=== PATIENT | female | born 1950 | race Caucasian/White ===

== ENCOUNTER 2017-12-30 12:43 | Inpatient (IN) ==
[2017-12-30 13:19] LABS: Basophils % 0.1 %
[2017-12-30 13:21] LABS: Eosinophils % 0.1 %; Hematocrit 36.5 % (35.3-44.9); Hemoglobin 12.4 g/dL (11.5-15.4); Immature Granulocytes % 0.5 % (0-4); Immature Platelets 4.6 % (1.1-6.1); Lymphocytes # 0.2 K/mcL (0.6-4.6); Lymphocytes % 2.6 %; Mean Corpuscular Hemoglobin 28.9 pg (28.0-33.3); Mean Corpuscular Volume 85.1 fL (83.0-100.0); Mean Platelet Volume 10.7 fL (9.4-12.4); Monocytes # 0.8 K/mcL (0.0-1.3); Monocytes % 10.9 %; Red Blood Count 4.29 M/mcL (3.82-4.97); Red Cell Distribution Width 14.1 % (11.5-14.5); Segmented Neutrophils % 85.8 %
[2017-12-30 13:22] LABS: Neutrophils # 6.4 K/mcL (1.6-8.9); Platelet Count 82 K/mcL (140-400)
[2017-12-30 13:38] LABS: BUN/Creatinine Ratio 15 (6-26); Blood Urea Nitrogen 15 mg/dL (8-23); Calcium 9.5 mg/dL (8.6-10.3); Carbon Dioxide 24 mEq/L (23-29); Chloride 101 mEq/L (98-107); Glucose 136 mg/dL (70-105); Osmolality,Calculated 283 (280-300); Potassium 3.7 mEq/L (3.5-5.1); Sodium 135 mEq/L (136-145); eGFR For Non-African Americans 56 (> 60)
[2017-12-30] MEDS ORDERED: Piperacillin/Tazobactam 3.375 GM in 0.9 % Sodium Chloride Mini Bag 100 ML IVPB ONE (14:58)
--- NOTE | 2017-12-30 14:58 | Emergency Department Note ---
Disposition Clinical Impression: Abscess of groin, right Cellulitis Qualifiers: Site of cellulitis: extremity Site of cellulitis of extremity: lower extremity Laterality: right Qualified Code(s): L03.115 - Cellulitis of right lower limb Disposition: Admitted As Inpatient Condition: Fair Time of Disposition: 17:30 General Adult HPI - General Chief complaint: ED Abdominal Pain Stated complaint: infection near groin Time Seen by Provider: 12/30/17 14:42 Source: patient, family Mode of arrival: private vehicle Limitations: no limitations Nursing Notes Reviewed: Yes Vital Signs Reviewed: Yes - History of Present Illness HPI Narrative: 67 y/o female presents to the ED with right groin and thigh pain. She is concerned that she has an infection. She has a hx of right groin lymph node removal, right groin infection/abscess being drained dx follicular lymphoma. She has always had a pocket of fluid since she had LN surgery. She completed chemo this spring and it did not go down. She had [place] surgeon [place] drain the area in October and it went down a little. For the last 3 days the area has become larger and more painful and redness going down right leg/thigh. She went to her PCP yesterday who marked the area and gave her rocephin IM and prescription for Bactrim. The redness was spreading so she came in for evaluation. She has had intermittent fevers and chills, has felt run down. Denies cp, sob, abd pain, ANGELES, dizziness, rashes, n/v/d. She went to the [facility] for her cancer treatment and had her surgery at [facility]. Pain Scale: 5 - Related Data Home Medications Medication Instructions Recorded Confirmed L. Acidophilus/Pectin, [place] 1 cap PO DAILY 11/04/16 12/30/17 [Acidophilus Probiotic Capsule] Multivitamin [One Daily 1 tab PO DAILY 12/30/17 12/30/17 Multivitamin] Sulfamethoxazole/Trimeth DS 1 tab PO BID 12/30/17 12/30/17 [Bactrim Ds] Allergies Allergy/AdvReac Type Severity Reaction Status Date / Time hydrocodone [From Vicodin] AdvReac See Verified 12/30/17 15:27 Comments All systems ED: reviewed and negative except as stated. Past Medical History - Past Medical History Medical history: Reports: arthritis, other (follicular lymphoma) Surgical history: Reports: cancer surgery (right groin LN removal) Psychiatric history: Reports: no psych history - Social History Smoking Status: Never smoker Smokeless Tobacco Status: No Alcohol use: Reports: none Drug use: Reports: none Physical Exam - General Limitations: no limitations General appearance: alert, in no apparent distress - Head Head exam: atraumatic, normocephalic, normal inspection - Eye Eye exam: Present: normal appearance, PERRL, EOMI - ENT ENT exam: normal exam, normal oropharynx, mucous membranes moist - Neck Neck exam: Present: normal inspection, full ROM, trachea midline - Chest Chest inspection: Present: normal inspection, symmetric chest wall rise - Respiratory Respiratory exam: Present: normal lung sounds bilaterally - Cardiovascular Cardiovascular exam: Present: regular rate, normal rhythm, normal heart sounds - Abdominal Exam Abdominal exam: Present: soft, Non-Tender. Absent: tenderness, distention, guarding, rebound, rigidity - Expanded Lower Extremity Exam Hip/Pelvis exam: Present: tenderness - Neurological Exam Neurological exam: Present: alert, oriented X3 - Psychiatric Psychiatric exam: Present: normal affect, normal mood - Skin Skin exam: Present: warm, dry - Expanded Skin Exam Type of lesion: Present: abscess Distribution: RLE (near right groin) Description: Present: tenderness, erythematous, swelling. Absent: discharge Course Course Narrative: 67 y/o female presents to the ED with right groin and thigh pain. She is concerned that she has an infection. She has a hx of right groin lymph node removal, right groin infection/abscess being drained dx follicular lymphoma. She has always had a pocket of fluid since she had LN surgery. She completed chemo this spring and it did not go down. She [place] surgeon [place] the area in October and it went down a little. For the last 3 days the area has become larger and more painful and redness going down right leg/thigh. She went to her PCP yesterday who marked the area and gave her rocephin IM and prescription for Bactrim. The redness was spreading so she came in for evaluation. On exam area appears erythemetous and swollen. Erythema has spread past watts from PCP. It is also warm. US at bedside reveals large pocket of non- loculated fluid. Likely is abscess with overlying cellulitis. Will start IV zosyn and vanc, consult surgery to assess for possible I/D. - Reevaluation(s) Reevaluation #1: Pt resting comfortably. Advised of plan and is agreeable. Provided warm blanket and swabs to we her mouth. Time: 16:30 - Consultations Consultation #1: Discussed the case with Dr. Pena with General Surgery regarding the patient needing evaluation for I/D of abscess. Advised pt will be admitted for IV abx. Consult placed. Time: 15:04 Consultation #2: Discussed the patient with Dr. Lane with the Hospitalist Service who has accepted the pt for admission. Time: 16:30 Vital Signs Temperature 99 F 12/30/17 12:48 Pulse Rate 82 12/30/17 12:48 Respiratory Rate 20 12/30/17 12:48 Blood Pressure 125/75 12/30/17 12:48 O2 Sat by Pulse Oximetry 98 12/30/17 12:48 Temperature 99 F 12/30/17 15:35 Pulse Rate 82 12/30/17 15:35 Respiratory Rate 16 12/30/17 17:33 Blood Pressure 103/64 12/30/17 17:33 O2 Sat by Pulse Oximetry 98 12/30/17 15:35 Oxygen Delivery Oxygen Delivery Room Air Medical Decision Making - MDM Narrative Medical decision making narrative: Pt presents with hx of follicular lymphoma, s/p chemo and right groin LN removal. She had a persistent pocket of fluid that was drained by her surgeon in [place] in October. Over the last 3 days she has had worsened erythema, swelling and warmth. She saw her PCP yesterday who outlined the area, gave her IM Rocephin and started her on bactrim. She states that today the erythema spread outside of the outline and she is having fevers and chills off and on. She was concerned and came in for evaluation. Area of erythema and warmth is extremely tender. Limited transcutaneous US performed at bedside with supervision of Dr. Agudelo revealed an area of non-loculated fluid collection. Overlying skin appears cellulitic. Due to location in right groin and diffuse nature of abscess, this is a procedure that we would not feel comfortable completing in the ED. Discussed case with pt and she wishes to stay at [place] vs going up to [facility] where her surgery was performed. Discussed case with oncall surgeon Dr. Pena, consult placed. Pt started on IV vancomycin for MRSA coverage and zosyn. Pt will be admitted for IV abx administration and possible I&D. - Lab Data Lab results reviewed: Yes I reviewed the patient's lab results. Result diagrams: 12/30/17 13:04 12/30/17 13:04 Lab Results 12/30/17 12/30/17 Range/Units 13:04 13:04 WBC 7.4 (4.3-11.1) K/mcL RBC 4.29 (3.82-4.97) M/mcL Hgb 12.4 (11.5-15.4) g/dL Hct 36.5 (35.3-44.9) % MCV 85.1 (83.0-100.0) fL MCH 28.9 (28.0-33.3) pg MCHC 34.0 (31.6-35.5) g/dL RDW 14.1 (11.5-14.5) % Plt Count 82 L (140-400) K/mcL MPV 10.7 (9.4-12.4) fL Immature Gran % 0.5 (0-4) % Seg Neutrophils % 85.8 % Lymphocytes % 2.6 % Monocytes % 10.9 % Eosinophils % 0.1 % Basophils % 0.1 % Neutrophils # 6.4 (1.6-8.9) K/mcL Lymphocytes # 0.2 L (0.6-4.6) K/mcL Monocytes # 0.8 (0.0-1.3) K/mcL Eosinophils # 0.0 (0.0-0.6) K/mcL Basophils # 0.0 (0.0-0.2) K/mcL Immature Plt Fraction 4.6 (1.1-6.1) % Sodium 135 L (136-145) mEq/L Potassium 3.7 (3.5-5.1) mEq/L Chloride 101 (98-107) mEq/L Carbon Dioxide 24 (23-29) mEq/L BUN 15 (8-23) mg/dL Creatinine 0.99 (0.60-1.20) mg/dL Est GFR ( Amer) > 60 (> 60) Est GFR (Non-Af Amer) 56 L (> 60) BUN/Creatinine Ratio 15 (6-26) Glucose 136 H (70-105) mg/dL Calculated Osmolality 283 (280-300) Calcium 9.5 (8.6-10.3) mg/dL
--- NOTE | 2017-12-30 15:02 | Emergency Department Note ---
Disposition Clinical Impression: Abscess of groin, right, Cellulitis Disposition: Admitted As Inpatient Condition: Fair General Adult HPI - General Chief complaint: ED Abdominal Pain Stated complaint: infection near groin Time Seen by Provider: 12/30/17 14:42 - History of Present Illness Pain Scale: 5 - Related Data Home Medications Medication Instructions Recorded Confirmed L. Acidophilus/Pectin, [place] 1 cap PO DAILY 11/05/15 12/30/17 [Acidophilus Probiotic Capsule] Multivitamin [One Daily 1 tab PO DAILY 12/30/17 12/30/17 Multivitamin] Sulfamethoxazole/Trimeth DS 1 tab PO BID 12/30/17 12/30/17 [Bactrim Ds] Allergies Allergy/AdvReac Type Severity Reaction Status Date / Time hydrocodone [From Vicodin] AdvReac See Verified 12/30/17 15:27 Comments Past Medical History - Past Medical History Medical history: Reports: arthritis Psychiatric history: Reports: no psych history - Social History Smoking Status: Never smoker Smokeless Tobacco Status: No Alcohol use: Reports: none Drug use: Reports: none Course Vital Signs Temperature 99 F 12/30/17 12:48 Pulse Rate 82 12/30/17 12:48 Respiratory Rate 20 12/30/17 12:48 Blood Pressure 125/75 12/30/17 12:48 O2 Sat by Pulse Oximetry 98 12/30/17 12:48 Temperature 103.0 F H 12/31/17 15:18 Pulse Rate 91 12/31/17 15:18 Respiratory Rate 17 12/31/17 15:18 Blood Pressure 109/53 12/31/17 15:18 O2 Sat by Pulse Oximetry 98 12/31/17 15:18 Oxygen Delivery Oxygen Delivery Room Air Medical Decision Making - Lab Data Result diagrams: 12/31/17 01:23 12/31/17 01:23 Lab Results 12/30/17 12/30/17 Range/Units 13:04 13:04 WBC 7.4 (4.3-11.1) K/mcL RBC 4.29 (3.82-4.97) M/mcL Hgb 12.4 (11.5-15.4) g/dL Hct 36.5 (35.3-44.9) % MCV 85.1 (83.0-100.0) fL MCH 28.9 (28.0-33.3) pg MCHC 34.0 (31.6-35.5) g/dL RDW 14.1 (11.5-14.5) % Plt Count 82 L (140-400) K/mcL MPV 10.7 (9.4-12.4) fL Immature Gran % 0.5 (0-4) % Seg Neutrophils % 85.8 % Lymphocytes % 2.6 % Monocytes % 10.9 % Eosinophils % 0.1 % Basophils % 0.1 % Neutrophils # 6.4 (1.6-8.9) K/mcL Lymphocytes # 0.2 L (0.6-4.6) K/mcL Monocytes # 0.8 (0.0-1.3) K/mcL Eosinophils # 0.0 (0.0-0.6) K/mcL Basophils # 0.0 (0.0-0.2) K/mcL Immature Plt Fraction 4.6 (1.1-6.1) % Sodium 135 L (136-145) mEq/L Potassium 3.7 (3.5-5.1) mEq/L Chloride 101 (98-107) mEq/L Carbon Dioxide 24 (23-29) mEq/L BUN 15 (8-23) mg/dL Creatinine 0.99 (0.60-1.20) mg/dL Est GFR ( Amer) > 60 (> 60) Est GFR (Non-Af Amer) 56 L (> 60) BUN/Creatinine Ratio 15 (6-26) Glucose 136 H (70-105) mg/dL Calculated Osmolality 283 (280-300) Calcium 9.5 (8.6-10.3) mg/dL Attestation Statement - Attestation Attestation: I examined this patient and my medical decision-making was reviewed with the Resident Physician. I agree with the documented findings, disposition and treatment plan as described except to the extent set forth below. [id number] time provided Patient presents with right inguinal pain, swelling, erythema. Clinically she has cellulitis and a suspected underlying abscess. The resident physician performed a limited transcutaneous US supervised by me which showed a non loculated fluid collection. Call placed to surgery orthotic practitioner. Patient will require admission to the medicine service for antibiotics
[2017-12-30] MEDS ORDERED: Acetaminophen 325 MG TABLET PO ONE (16:31)
--- NOTE | 2017-12-30 19:24 | Internal Med History&Physical ---
Date of Encounter: 12/30/17 Time of Encounter: 19:20 Internal Medicine - H&P: HPI Chief complaint: PAIN WITH REDNESS/SWELLING IN R GROIN AREA Admitted From: Home Plans for Post Hospital Care: Home History of present illness: Ms. Desouza is a 67 year old female. This patient has been developing progressing pain with redness and swelling for the last 3 days. It is associated with off and on fever/chills. It was yesterday, when she was put on Bactrim double strength. She came to our emergency room today, as she was not getting any better. The patient was diagnosed with lymphoma in March 2017after sampling of her lymph nodes from right inguinal area. The surgical wound healed well. Ultrasound of her right groin area revealed a collection of fluid in that area. General surgery is consulted. Other than the lymphoma, she is not having any other diagnosis. She had a very large spleen in 2017; got chemotherapy for about 6 months. Review of systems: All 14 organ systems were reviewed by me with the patient. Positive and pertinent negative findings are listed above. The rest of organ systems is negative. Assessment and plan: Cellulitis with collection of fluid in the area of her right groin. She had a sampling of lymph nodes in that area in 2017. We will continue IV vancomycin and IV Zosyn waiting for cultures results. General surgery is consulted. The Lymphoma. Treatment as per hematology/oncology staff. Past Med Surg Social Fam HX - Past Medical History Medical history: arthritis Additional medical history: soft tissue mass Psychiatric history: no psych history - Past Surgical History Additional surgical history: knee scope-right, Left wrist surgery - Social History Smoking Status: Never smoker Smokeless Tobacco Status: No Alcohol use: none Drug use: none Internal Medicine - H&P: Meds L. Acidophilus/Pectin, [place] [Acidophilus Probiotic Capsule] 1 cap PO DAILY 12/13 [History] Multivitamin [One Daily Multivitamin] 1 tab PO DAILY 12/30/17 [History] Sulfamethoxazole/Trimeth DS [Bactrim Ds] 1 tab PO BID 12/30/17 [History] 3 Allergy/AdvReac Type Severity Reaction Status Date / Time hydrocodone [From Vicodin] AdvReac See Verified 12/30/17 15:27 Comments All Systems PM: A 10-system review of systems was performed and is negative for pertinent findings except as documented above in the HPI. - Constitutional Vitals: Temp Pulse Resp BP Pulse Ox 99 F 82 16 103/64 98 12/30/17 15:35 12/30/17 15:35 12/30/17 17:33 12/30/17 17:33 12/30/17 15:35 General appearance: Present: A&O X 3, no acute distress, answers questions appropriately - Other Additional findings: Skin: THERE IS SOME REDNESS AND MODERATE SWELLING IN THE AREA OF RIGHT GROIN EXTENDING TO UPPER PORTION OF ANTERIOR RIGHT THIGH. i CANNOT FEEL ANY FLUCTUATION THERE. THAT AREA IS MODERATELY TENDER TO PALPATION. Eyes: Sclera is white. There is no discharge from eyes. ENMT: Oral/pharyngeal mucosa is normal in appearance. There is no discharge from nose or ears. Respiratory: Normal breath sounds with no crackles and wheezes bilaterally. CV: Heart is regular with no gallop or murmur. GI: Abdomen is flat and soft with no palpable mass or visceromegaly. : There is no tenderness in patient's flanks bilaterally. Neuro exam: He has good strength in upper and lower extremities. He has normal eye movements. Psychiatric: He has normal affect. His thought process is appropriate to the situation. Internal Med - H&P Results - Labs CBC & Chem 7: 12/30/17 13:04 12/30/17 13:04 - Assessment and plan (1) Cellulitis of leg without foot, right Current Visit: Yes Status: Acute (2) Lymphoma Current Visit: Yes Status: Acute Qualifiers: Lymphoma type: unspecified type Lymphoma site: spleen Qualified Code(s): C85.97 - Non-Hodgkin lymphoma, unspecified, spleen - Time Spent With Patient Total time spent is greater than 50% in coordination of care (as documented) at patient's floor/unit and/or counseling patient: Greater than 35 minutes (40 minutes)
[2017-12-30] MEDS ORDERED: *HR* OxyCODONE Immed Rel 5 MG TABLET PO PRN (19:56)
[2017-12-30] MEDS ORDERED: traMADol 50 MG TABLET PO PRN (19:56)
[2017-12-30] MEDS ORDERED: Naloxone 0.4 MG/ML INJ IVP PRN (19:56)
[2017-12-30] MEDS ORDERED: 0.9 % Sodium Chloride 1,000 ML IVC SCH (20:00)
[2017-12-30] MEDS: Piperacillin/Tazobactam 3.375 GM in 0.9 % Sodium Chloride Mini Bag 100 ML IVPB SCH (23:22)
[2017-12-30] MEDS: Acetaminophen 325 MG TABLET PO PRN (23:31)
[2017-12-31 01:35] LABS: Eosinophils % 0.7 %; Hemoglobin 9.3 g/dL (11.5-15.4); Immature Granulocytes % 0.5 % (0-4); Immature Platelets 3.8 % (1.1-6.1); Lymphocytes # 0.1 K/mcL (0.6-4.6); Lymphocytes % 3.2 %; Mean Corpuscular HGB Conc 33.2 g/dL (31.6-35.5); Mean Corpuscular Hemoglobin 28.2 pg (28.0-33.3); Mean Corpuscular Volume 84.8 fL (83.0-100.0); Mean Platelet Volume 10.9 fL (9.4-12.4); Monocytes # 0.5 K/mcL (0.0-1.3); Monocytes % 13.2 %; Neutrophils # 3.3 K/mcL (1.6-8.9); Red Cell Distribution Width 13.9 % (11.5-14.5); Segmented Neutrophils % 82.4 %
[2017-12-31 01:36] LABS: Platelet Count 63 K/mcL (140-400)
[2017-12-31 01:52] LABS: Platelet Estimate Decreased (Normal)
[2017-12-31 01:58] LABS: BUN/Creatinine Ratio 15 (6-26); Blood Urea Nitrogen 16 mg/dL (8-23); Calcium 8.2 mg/dL (8.6-10.3); Carbon Dioxide 21 mEq/L (23-29); Chloride 106 mEq/L (98-107); Glucose 125 mg/dL (70-105); Magnesium 1.8 mg/dL (1.6-2.6); Osmolality,Calculated 283 (280-300); Potassium 3.4 mEq/L (3.5-5.1); Sodium 135 mEq/L (136-145); eGFR For Non-African Americans 52 (> 60)
[2017-12-31] MEDS: Acetaminophen 325 MG TABLET PO PRN ×2 (06:51→15:25)
[2017-12-31] MEDS: Piperacillin/Tazobactam 3.375 GM in 0.9 % Sodium Chloride Mini Bag 100 ML IVPB SCH ×3 (08:55→23:39)
[2017-12-31] MEDS ORDERED: Isovue-370 500 ML INFUS..BTL IV ONE ×3 (10:35→11:20)
--- NOTE | 2017-12-31 11:29 | General Surgery Consult Note ---
Date of Encounter: 12/31/17 Time of Encounter: 11:00 Assessment and Plan (1) Cellulitis of right groin Current Visit: Yes Status: Acute IV antibiotics- Vancomycin and Zosyn are appropriate for coverage Serial exams Supportive care Further evaluate with CT of pelvis Will discuss further POC with Dr. Pena before proceeding with intervention Okay for a regular diet (2) Lymphocele Current Visit: Yes Status: Acute IV antibiotics- Vancomycin and Zosyn are appropriate for coverage Serial exams Supportive care Further evaluate with CT of pelvis Will further discuss POC with Dr. Pena before proceeding with intervention Okay for a regular diet (3) Lymphoma Current Visit: Yes Status: Acute Patient is followed at the [facility] Chemotherapy complete in September of [address] scheduled for outpatient [address] of Chest/Abdomen/Pelvis with PO and IV contrast next week (testing ordered today given need to further evaluate right groin)- Patient will need a copy of her imaging to take to her next oncology appointment. Qualifiers: Lymphoma type: unspecified type Lymphoma site: spleen Qualified Code(s): C85.97 - Non-Hodgkin lymphoma, unspecified, spleen History of Present Illness Consult date: 12/30/17 Reason for consult: other (Right groin cellulitis) Requesting physician: Mario Agudelo History of present illness: Mrs. Desouza is a very pleasant 67 year old female with a history of lymphoma. She reports to the ED with complaints of right groin pain with associated erythema and pain. She also reports a fever as high as 102 degrees. She states that her symptoms started 3 days ago and have progressively worsened. She reports that the redness is spreading down her leg. Denies any numbness/ tingling to right lower extremity. She did have a lymph node biopsy to her right groin in March of 2017 which led to her diagnosis of lymphoma. She reports that she has had intermittent issues with the right groin since that time. She reports that her symptoms did improve with chemotherapy but she is unsure whether there was a correlation of not. She completed her treatments in September of 2017 at the [facility]. She reports that she did have "fluid build up" in October of 2017 and that the fluid was aspirated with a needle at that time. She reports that there was no active infection identified at that time. She reports that the fluid was clear and yellow. We have been asked to see and evaluate the patient for recommendations. Past Med Surg Social Fam HX - Past Medical History Medical history: arthritis, cancer (lymphoma), other (follicular lymphoma) Additional medical history: soft tissue mass Psychiatric history: no psych history - Past Surgical History Surgical History: cancer surgery (right groin LN removal), hysterectomy (partial ), orthopedic, other (right knee meniscus repair; left thumb; ganglion cyst removal left foot; benign tumor of left foot removed) Additional surgical history: knee scope-right, Left wrist surgery - Social History Smoking Status: Never smoker Smokeless Tobacco Status: No Alcohol use: none Drug use: none Current living situation: Home - Independent Activity Level: Independent ambulation - Family History Brother Living Status: Hx Family Cardiac Disorders: Yes (CHF) Hx Family Cancer: Yes (Pancreatic, Lung and Liver cancer) Hx Family Endocrine Disorder: Yes (DM) Father Living Status: Hx Family Cancer: Yes (Prostate cancer) Mother Living Status: Age at : 90 Hx Family Cardiac Disorders: Yes (CAD) Hx Family Endocrine Disorder: Yes (DM) Sister Hx Family Endocrine Disorder: Yes (DM) Medications and Allergies L. Acidophilus/Pectin, [place] [Acidophilus Probiotic Capsule] 1 cap PO DAILY 12/13 [History] Multivitamin [One Daily Multivitamin] 1 tab PO DAILY 12/30/17 [History] Sulfamethoxazole/Trimeth DS [Bactrim Ds] 1 tab PO BID 12/30/17 [History] 3 Allergy/AdvReac Type Severity Reaction Status Date / Time hydrocodone [From Vicodin] AdvReac See Verified 12/30/17 15:27 Comments Review of Systems All systems PM: reviewed and no additional remarkable complaints except as stated (in the HPI) All systems PM: The remainder of the systems were reviewed and are negative General Surgery Exam Initial Vital Signs Temp Pulse Resp BP Pulse Ox 99 F 82 20 125/75 98 12/30/17 12:48 12/30/17 12:48 12/30/17 12:48 12/30/17 12:48 12/30/17 12:48 - General physical appearance well developed, well nourished, moderate pain - Eyes normal ocular movement - ENT normal mucosa, atraumatic, normocephalic - Neck trachea midline - Respiratory normal expansion, normal respiratory effort, clear to auscultation - Cardiovascular Cardiovascular exam: Present: RRR - Abdomen Abdomen general surgery: Present: bowel sounds present, soft, tender Abdominal Tenderness: Present: RLQ - Integumentary Integumentary general surgery: Present: warm and dry, other (Right groin swelling with significant erythema noted, tender to examination, serous drainage noted at the skin surface) - Neurologic Present: CN 2-12 grossly intact - Psychiatric Psychiatric general surgery: Present: appropriate, oriented to person, oriented to place, oriented to time, speech is normal, memory intact Exam Initial Vital Signs Temp Pulse Resp BP Pulse Ox 99 F 82 20 125/75 98 12/30/17 12:48 12/30/17 12:48 12/30/17 12:48 12/30/17 12:48 12/30/17 12:48 Results - Labs 12/31/17 01:23 12/31/17 01:23 Abnormal lab results WBC 4.0 K/mcL (4.3-11.1) L 12/31/17 01:23 RBC 3.30 M/mcL (3.82-4.97) L 12/31/17 01:23 Hgb 9.3 g/dL (11.5-15.4) L D 12/31/17 01:23 Hct 28.0 % (35.3-44.9) L 12/31/17 01:23 Plt Count 63 K/mcL (140-400) L 12/31/17 01:23 Lymphocytes # 0.1 K/mcL (0.6-4.6) L 12/31/17 01:23 Platelet Estimate Decreased (Normal) L 12/31/17 01:23 Sodium 135 mEq/L (136-145) L 12/31/17 01:23 Potassium 3.4 mEq/L (3.5-5.1) L 12/31/17 01:23 Carbon Dioxide 21 mEq/L (23-29) L 12/31/17 01:23 Est GFR (Non-Af Amer) 52 (> 60) L 12/31/17 01:23 Glucose 125 mg/dL (70-105) H 12/31/17 01:23 Calcium 8.2 mg/dL (8.6-10.3) L 12/31/17 01:23 Diabetes panel 12/31/17 Range/Units 01:23 Sodium 135 L (136-145) mEq/L Potassium 3.4 L (3.5-5.1) mEq/L Chloride 106 (98-107) mEq/L Carbon Dioxide 21 L (23-29) mEq/L BUN 16 (8-23) mg/dL Creatinine 1.06 (0.60-1.20) mg/dL Glucose 125 H (70-105) mg/dL Calcium 8.2 L (8.6-10.3) mg/dL Calcium panel 12/31/17 Range/Units 01:23 Calcium 8.2 L (8.6-10.3) mg/dL Pituitary panel 12/31/17 Range/Units 01:23 Sodium 135 L (136-145) mEq/L Potassium 3.4 L (3.5-5.1) mEq/L Chloride 106 (98-107) mEq/L Carbon Dioxide 21 L (23-29) mEq/L BUN 16 (8-23) mg/dL Creatinine 1.06 (0.60-1.20) mg/dL Glucose 125 H (70-105) mg/dL Calcium 8.2 L (8.6-10.3) mg/dL Adrenal panel 12/31/17 Range/Units 01:23 Sodium 135 L (136-145) mEq/L Potassium 3.4 L (3.5-5.1) mEq/L Chloride 106 (98-107) mEq/L Carbon Dioxide 21 L (23-29) mEq/L BUN 16 (8-23) mg/dL Creatinine 1.06 (0.60-1.20) mg/dL Glucose 125 H (70-105) mg/dL Calcium 8.2 L (8.6-10.3) mg/dL All other labs normal. - Imaging Additional studies: CT of chest/abdomen/pelvis pending Consult Discharge Plan - Plan Referrals: Cynthia Tirado, [facility] [Primary Care Provider] - - Attending Attestation For this encounter, I have reviewed the [employer]OOFER or PA documentation, treatment plan, and medical decision making; and I have had face to face time with this patient.
--- NOTE | 2017-12-31 15:53 | General Surgery Procedure Note ---
Date of procedure: 12/31/17 Pre-op diagnosis: Right groin abscess Post-op diagnosis: same Procedure: After informed consent was obtained and timeout completed, the patient's right groin was prepped and draped. The area was localized with 15 ML's of 1% lidocaine. After achieving appropriate localization, a 4 cm incision was made over the most fluctuant area using a size 11 blade. There was immediate return of purulent drainage. The cavity was further opened and decompressed using hemostats. Gram stain, aerobic, and anaerobic cultures were obtained. The cavity was flushed using 40 MLs of saline and then packed with 1 roll of Mesalt ribbon and covered with a dry dressing. The procedure was performed at the patient's bedside. Through skin and subcutaneous tissue. Complications: None immediate Anesthesia: local Surgeon: Brianna Camacho Estimated blood loss (cc): 0 Pathology: other (gram stain, aerobic culture, anaerobic culture) Condition: stable Disposition: no change - Patient Status Disposition: Home Health Service Condition: Good - Discharge Instructions Follow Up With: Cynthia Tirado CNP [Primary Care Provider] - Anais Quintana CNP [Advanced Practice Nurse] - 01/07/18 9:45 am (procedure follow-up) Additional Instructions: Wound care- cleanse the right groin with soap and water and the shower daily and pat dry, pack with Mesalt ribbon, cover with dry dressing and taped to secure daily - Diet and Activity Diet: advance to your usual diet
[2018-01-01] MEDS: Acetaminophen 325 MG TABLET PO PRN (01:19)
[2018-01-01] MEDS: Piperacillin/Tazobactam 3.375 GM in 0.9 % Sodium Chloride Mini Bag 100 ML IVPB SCH ×3 (07:47→23:47)
--- NOTE | 2018-01-01 07:52 | General Surgery Progress Note ---
<Marisa Fairchild E - Last Filed: 01/01/18 10:37> Date of Encounter: 01/01/18 Time of Encounter: 07:48 - Assessment and Plan (1) Abscess of groin, right Current Visit: Yes Status: Acute Wound care- cleanse the right groin with soap and water and the shower daily and pat dry, pack with Mesalt ribbon, cover with dry dressing and taped to secure daily OK to Shower and clean wound Pat dry Follo wup with Malena in 1-2 weeks continue antibiotics as per primary Ok to discharge from surgical standpoint Surgery will sign off at this time, thank you for involving us in this patient' s care, please feel free to contact us with any questions. (2) Cellulitis of leg without foot, right Current Visit: Yes Status: Acute Continue Zosyn and Vancomycin for cellulitis. Continue to monitor errythma around groin abscess for any increasing margins Serial exams Supportive care Further evaluation with CT of pelvis OK for regular diet (3) Cellulitis of right groin Current Visit: Yes Status: Acute please see above (4) Lymphocele Current Visit: Yes Status: Acute please see above (5) Lymphoma Current Visit: Yes Status: Acute Patient is followed by [facility] Chemotehrapy completed in September of 2017 Pt is scheduled for outpatient CT of Chest/Abd/Pelvis wtih PO and IV contrast next week but ordered yesterday de to need to evaluate abcess. Pt will need copies to take with her to her follow up with [facility] CT/CT abd pelvis w iv and oral IMPRESSION: Focal fluid collection in the proximal right thigh anteriorly, likely abscess. Decreased size of spleen when compared to prior with decrease in size of hypodense nodules Decreased retroperitoneal adenopathy CT/CT chest w con IMPRESSION: Single mildly prominent precarinal lymph node measuring 12 mm in short axis transverse diameter. Few mildly prominent lymph nodes within the right paratracheal and anterior mediastinum which measure 1 cm or less in short axis transverse diameter. Although these are not specific, they could be related to clinical diagnosis of lymphoma. Moderate splenomegaly with multiple low-density mass lesions consistent with history of lymphoma. Note that the spleen and abdomen were not completely evaluated on this chest CT. Please refer to abdominal CT report on a separate exam the same day. Otherwise, no acute pulmonary finding. 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 Desouza was awake in bed when I entered the room. She stated her pain is much better today than it was yesterday. She is having some diarrhea that she thinks is fro gold antibiotics.) , diarrhea Objective Vital Signs - Last 8 Hours Temp Pulse Resp BP Pulse Ox 01/01/18 06:38 97.8 F 57 14 100/60 97 01/01/18 03:37 98.4 F 65 17 103/52 93 01/01/18 00:40 100.1 F H 80 16 102/51 93 Intake and Output 12/31/17 12/31/17 01/01/18 15:59 23:59 07:59 Intake Total 100 / 100 700 / 700 500 / 500 Output Total 0 / 0 Balance 100 / 100 700 / 700 500 / 500 Intake: IV Fluids 100 / 100 600 / 600 Zosyn 3.375 GM In 0.9 % Sodium 100 / 100 100 / 100 Chloride (Mini-Bag +) 100 ML @ 25 mls/hr IVPB Q8HR PASCUAL Rx#: [id number] Vancocin 1,000 MG In 0.9 % 250 / 250 Sodium Chloride 250 ML @ 167 mls/hr IVPB Q24H PASCUAL Rx#: [id number] Oral 0 / 0 100 / 100 500 / 500 Output: Urine 0 / 0 Other: Meal NPO Dinner Percent of Meal Consumed 0% 90% # Voids 1 - General physical appearance well developed, well nourished, no distress - Respiratory normal expansion, normal respiratory effort, clear to auscultation - Cardiovascular Cardiovascular exam: Present: RRR, no murmurs/rubs/gallops - Abdomen Abdomen: Present: bowel sounds present, soft, non tender - Incision Incision: Present: swollen, erythema (site of right groin abcess is red, inflammed, and warm to gold touch. Packing is in place. Pt states the redness thathad surrounded the abcess has decreased substantially, receading from the mid-thigh region to within 6 inches of the abcess. ) - Integumentary no rash, no growths, no abnormal pigmentation - Musculoskeletal normal posture - Psychiatric oriented to time, oriented to person, oriented to place - Labs 12/31/17 01:23 12/31/17 01:23 Consult Discharge Plan - Plan Additional Instructions: Wound care- cleanse the right groin with soap and water and the shower daily and pat dry, pack with Mesalt ribbon, cover with dry dressing and taped to secure daily Referrals: Cynthia Tirado, HANDBAG FRAMES INSPECTOR [Primary Care Provider] - Kriss Knight CRNA [SKI BINDING FITTER AND REPAIRER] - (call Kriss Knight's office to schedule an appointment 1 to 2 weeks from today 01/01/2018. ) Anais Quintana CNP [Advanced Practice Nurse] - 01/07/18 9:45 am (procedure follow-up) Prescriptions: Adhesive Tape [Paper Tape] 1 each TP AD #2 tape Polyhexam Biguan/Gauze Bandage [Curity Amd 4"X4" Non-Woven] 1 each TP AD #120 sponge Sodium Chloride [Mesalt] 1 each TP AD #10 bandage Swab [Cotton Swabs] 1 each MC AD #30 swab <Sampson Alcaraz - Last Filed: 01/01/18 12:05> Date of Encounter: 01/01/18 Objective Vital Signs - Last 8 Hours Temp Pulse Resp BP Pulse Ox 01/01/18 10:21 97.9 F 61 14 96/54 100 01/01/18 06:38 97.8 F 57 14 100/60 97 Intake and Output 12/31/17 01/01/18 01/01/18 23:59 07:59 15:59 Intake Total 700 / 700 600 / 600 710 / 710 Output Total 0 / 0 0 / 0 Balance 700 / 700 600 / 600 710 / 710 Intake: IV Fluids 600 / 600 100 / 100 Zosyn 3.375 GM In 0.9 % Sodium 100 / 100 100 / 100 Chloride (Mini-Bag +) 100 ML @ 25 mls/hr IVPB Q8HR PASCUAL Rx#: [id number] Vancocin 1,000 MG In 0.9 % 250 / 250 Sodium Chloride 250 ML @ 167 mls/hr IVPB Q24H PASCUAL Rx#: [id number] Oral 100 / 100 500 / 500 710 / 710 Output: Urine 0 / 0 0 / 0 Other: Meal Dinner Breakfast Percent of Meal Consumed 90% 100% Stool Size Small Stool Consistency liquid Stool Color Brown # Voids 1 # Bowel Movements 1 - Labs 12/31/17 01:23 12/31/17 01:23 - Attending Attestation patient seen and examined. i have reviewed all notes, imaging, and labs. I agree with the above assessment and plan.
--- NOTE | 2018-01-01 11:12 | Internal Med Progress Note ---
Hospitalist Progress Note - Encounter Date of Encounter: 01/01/18 Time of Encounter: 11:03 - Subjective Interval History: Seen and examined at bedside; still having pain to right groin but overall improved. No fevers or chills - Exam Vitals: Temp Pulse Resp BP Pulse Ox 97.9 F 61 14 96/54 100 01/01/18 10:21 01/01/18 10:21 01/01/18 10:21 01/01/18 10:21 01/01/18 10:21 Exam: Skin: right groin erythema, with abscess. S/p I&D with drainage Eyes: Sclera is white. There is no discharge from eyes. ENMT: Oral/pharyngeal mucosa is normal in appearance. There is no discharge from nose or ears. Respiratory: Normal breath sounds with no crackles and wheezes bilaterally. CV: Heart is regular with no gallop or murmur. GI: Abdomen is flat and soft with no palpable mass or visceromegaly. : There is no tenderness in patient's flanks bilaterally. Neuro exam: He has good strength in upper and lower extremities. He has normal eye movements. Psychiatric: He has normal affect. His thought process is appropriate to the situation. - Assessment and Plan (1) Abscess of groin, right Current Visit: Yes Status: Acute Assessment and Plan: s/p lymph node excision 03/2017. Had fluid collection development with fine needle aspiration at [facility] 10/2017. No infection per patient. Now with recurrent fluid collection with surrounding cellulitis. ADB/pelvus CT showed focal fluid collection in the proximal right thigh anteriorly, likely abscess. S/p I&D 2017 per Ortho; cx's pending. Cont IV vanco and zosyn. Follow cx's and narrow accordingly (2) Lymphoma Current Visit: Yes Status: Acute Assessment and Plan: per hx. Follows with Dr. Vazquez at [facility]. Currently on monthly treatment. Follow -up with outpatient as previously planned DVT Prophylaxis: heparin - Time Spent with Patient Total time spent is greater than 50% in coordination of care (as documented) at patient's floor/unit and/or counseling patient: less than 15 minutes Plan of Care Discussed with: patient Internal Medicine: Result - Labs CBC & Chem 7: 12/31/17 01:23 12/31/17 01:23 - Impressions Impressions Abdomen/Pelvis CT 12/31/17 13:45 IMPRESSION: Focal fluid collection in the proximal right thigh anteriorly, likely abscess. Decreased size of spleen when compared to prior with decrease in size of hypodense nodules Decreased retroperitoneal adenopathy D/ / Ender Valencia MD / Ender Valencia MD Interpreting Provider: Ender Valencia MD Chest CT 12/31/17 13:45 IMPRESSION: Single mildly prominent precarinal lymph node measuring 12 mm in short axis transverse diameter. Few mildly prominent lymph nodes within the right paratracheal and anterior mediastinum which measure 1 cm or less in short axis transverse diameter. Although these are not specific, they could be related to clinical diagnosis of lymphoma. Moderate splenomegaly with multiple low-density mass lesions consistent with history of lymphoma. Note that the spleen and abdomen were not completely evaluated on this chest CT. Please refer to abdominal CT report on a separate exam the same day. Otherwise, no acute pulmonary finding. D/ / 12/31/2017 15:00:26 Tristen Mendoza MD / ramón Interpreting Provider: Tristen Mendoza MD Consult Discharge Plan - Plan Additional Instructions: Wound care- cleanse the right groin with soap and water and the shower daily and pat dry, pack with Mesalt ribbon, cover with dry dressing and taped to secure daily Referrals: Cynthia Tirado CNP [Primary Care Provider] - Kriss Knight CRNA [PRODUCT DEMONSTRATOR] - (call Kriss Knight's office to schedule an appointment 1 to 2 weeks from today 01/01/2018. ) Anais Quintana CNP [Advanced Practice Nurse] - 01/07/18 9:45 am (procedure follow-up) Prescriptions: Adhesive Tape [Paper Tape] 1 each TP AD #2 tape Polyhexam Biguan/Gauze Bandage [Curity Amd 4"X4" Non-Woven] 1 each TP AD #120 sponge Sodium Chloride [Mesalt] 1 each TP AD #10 bandage Swab [Cotton Swabs] 1 each AD #30 swab (2) Lymphoma Qualifiers: Lymphoma type: unspecified type Lymphoma site: spleen Qualified Code(s): C85.97 - Non-Hodgkin lymphoma, unspecified, spleen
[2018-01-01 12:03] LABS: Hematocrit 31.5 % (35.3-44.9); Hemoglobin 10.4 g/dL (11.5-15.4); Mean Corpuscular Hemoglobin 28.3 pg (28.0-33.3); Red Cell Distribution Width 14.2 % (11.5-14.5)
[2018-01-01 12:05] LABS: Immature Platelets 3.7 % (1.1-6.1); Mean Corpuscular Volume 85.6 fL (83.0-100.0); Mean Platelet Volume 10.4 fL (9.4-12.4); Red Blood Count 3.68 M/mcL (3.82-4.97)
[2018-01-01 12:25] LABS: BUN/Creatinine Ratio 15 (6-26); Blood Urea Nitrogen 14 mg/dL (8-23); Calcium 8.9 mg/dL (8.6-10.3); Carbon Dioxide 23 mEq/L (23-29); Chloride 106 mEq/L (98-107); Glucose 109 mg/dL (70-105); Osmolality,Calculated 287 (280-300); Potassium 3.2 mEq/L (3.5-5.1); Sodium 138 mEq/L (136-145); eGFR For Non-African Americans > 60 (> 60)
[2018-01-01] MEDS: *HR* Heparin 5,000 UNIT/ML VIAL SQ SCH ×2 (16:34→21:27)
[2018-01-02 04:47] LABS: Red Blood Count 3.3 M/mcL (3.82-4.97)
[2018-01-02 04:49] LABS: Hematocrit 27.7 % (35.3-44.9); Hemoglobin 9.3 g/dL (11.5-15.4); Immature Platelets 3.3 % (1.1-6.1); Mean Corpuscular HGB Conc 33.6 g/dL (31.6-35.5); Mean Corpuscular Hemoglobin 28.2 pg (28.0-33.3); Mean Corpuscular Volume 83.9 fL (83.0-100.0); Mean Platelet Volume 10.2 fL (9.4-12.4); Red Cell Distribution Width 14.2 % (11.5-14.5)
[2018-01-02 04:55] LABS: BUN/Creatinine Ratio 16 (6-26); Blood Urea Nitrogen 12 mg/dL (8-23); Calcium 8.4 mg/dL (8.6-10.3); Carbon Dioxide 24 mEq/L (23-29); Chloride 110 mEq/L (98-107); Glucose 116 mg/dL (70-105); Osmolality,Calculated 291 (280-300); Potassium 3.8 mEq/L (3.5-5.1); Sodium 140 mEq/L (136-145); eGFR For Non-African Americans > 60 (> 60)
[2018-01-02] MEDS: *HR* Heparin 5,000 UNIT/ML VIAL SQ SCH ×3 (05:44→21:38)
[2018-01-02] MEDS: Piperacillin/Tazobactam 3.375 GM in 0.9 % Sodium Chloride Mini Bag 100 ML IVPB SCH (07:44)
--- NOTE | 2018-01-02 15:22 | Internal Med Progress Note ---
Hospitalist Progress Note - Encounter Date of Encounter: 01/02/18 Time of Encounter: 08:30 - Subjective Interval History: Seen and examined at bedside. Says she feels better today. Still having some pain and tenderness at right groin site but overall improved. She tells me plan is for her son to do dressing changes when she is discharge. - Exam Vitals: Temp Pulse Resp BP Pulse Ox 98.4 F 68 15 118/76 97 01/02/18 14:33 01/02/18 14:33 01/02/18 14:33 01/02/18 14:33 01/02/18 14:33 Exam: Skin: right groin erythema, with abscess. S/p I&D with drainage Eyes: Sclera is white. There is no discharge from eyes. ENMT: Oral/pharyngeal mucosa is normal in appearance. There is no discharge from nose or ears. Respiratory: Normal breath sounds with no crackles and wheezes bilaterally. CV: Heart is regular with no gallop or murmur. GI: Abdomen is flat and soft with no palpable mass or visceromegaly. : There is no tenderness in patient's flanks bilaterally. Neuro exam: He has good strength in upper and lower extremities. He has normal eye movements. Psychiatric: He has normal affect. His thought process is appropriate to the situation. - Assessment and Plan (1) Abscess of groin, right Current Visit: Yes Status: Acute Assessment and Plan: s/p lymph node excision 03/2017. Had fluid collection development with fine needle aspiration at [facility] 10/2017. No infection per patient. Now with recurrent fluid collection with surrounding cellulitis. ADB/pelvus CT showed focal fluid collection in the proximal right thigh anteriorly, likely abscess. S/p I&D 2017 per Ortho. Cultures with staph aureus. De-escalate ATB therapy from Vanco and Zosyn to Ancef. ID consulted for ATB recommendations as patient is high risk with recent chemotherapy and currently receiving Biologics. (2) Loose stools Current Visit: Yes Status: Acute Assessment and Plan: Likely related to ATB however will check for C. difficile (3) Lymphoma Current Visit: Yes Status: Acute Assessment and Plan: per hx. Follows with Dr. Vazquez at [facility]. Currently on monthly treatment. Follow -up with outpatient as previously planned DVT Prophylaxis: heparin - Time Spent with Patient Total time spent is greater than 50% in coordination of care (as documented) at patient's floor/unit and/or counseling patient: Internal Medicine: Result - Labs CBC & Chem 7: 01/02/18 03:52 01/02/18 03:52 Labs: Short CBC 01/02/18 Range/Units 03:52 WBC 2.5 L (4.3-11.1) K/mcL Hgb 9.3 L (11.5-15.4) g/dL Hct 27.7 L (35.3-44.9) % Plt Count 81 L (140-400) K/mcL BMP 01/02/18 03:52 Sodium 140 Potassium 3.8 Chloride 110 H Carbon Dioxide 24 BUN 12 Creatinine 0.77 Glucose 116 H Calcium 8.4 L Consult Discharge Plan - Plan Additional Instructions: Wound care- cleanse the right groin with soap and water and the shower daily and pat dry, pack with Mesalt ribbon, cover with dry dressing and taped to secure daily Referrals: Cynthia Tirado CNP [Primary Care Provider] - Kriss Knight CRNA [PROFESSOR OF LAW] - (call Kriss Knight's office to schedule an appointment 1 to 2 weeks from today 01/01/2018. ) Anais Quintana CNP [Advanced Practice Nurse] - 01/07/18 9:45 am (procedure follow-up) Prescriptions: Adhesive Tape [Paper Tape] 1 each TP AD #2 tape Polyhexam Biguan/Gauze Bandage [Curity Amd 4"X4" Non-Woven] 1 each TP AD #120 sponge Sodium Chloride [Mesalt] 1 each TP AD #10 bandage Swab [Cotton Swabs] 1 each MC AD #30 swab (3) Lymphoma Qualifiers: Lymphoma type: unspecified type Lymphoma site: spleen Qualified Code(s): C85.97 - Non-Hodgkin lymphoma, unspecified, spleen
[2018-01-02] MEDS ORDERED: Aminoglycoside Consult 1 EACH MC ONE (15:24)
[2018-01-02] MEDS: MetroNIDAZOLE 500 MG/100 ML 500 MG/100 ML BAG IVPB SCH ×2 (16:57→23:56)
[2018-01-03] MEDS: *HR* Heparin 5,000 UNIT/ML VIAL SQ SCH (06:21)
[2018-01-03] MEDS: Acetaminophen 325 MG TABLET PO PRN (07:48)
[2018-01-03] MEDS: MetroNIDAZOLE 500 MG/100 ML 500 MG/100 ML BAG IVPB SCH (07:50)
[2018-01-03 10:28] VITALS: BP 107/62
--- NOTE | 2018-01-03 13:12 | Infectious Disease Consult ---
Date of Encounter: 01/03/18 Time of Encounter: 13:03 Assessment and Plan (1) Cellulitis of leg without foot, right Status: Acute Assessment and plan: Secondary to groin abscess with MSSA Resolved (2) Lymphoma Status: Acute Qualifiers: Lymphoma type: unspecified type Lymphoma site: spleen Qualified Code(s): C85.97 - Non-Hodgkin lymphoma, unspecified, spleen (3) Abscess of groin, right Status: Acute Assessment and plan: Status post I&D by surgery on 12/30 Cultures grew MSSA Patient currently on cefazolin and Flagyl If okay with surgery on discharge we can discharge the patient on Keflex 500 mg by mouth 3 times a day to treat through 01/10/2018 (4) Leukopenia Status: Acute Qualifiers: Leukopenia type: unspecified Qualified Code(s): D72.819 - Decreased white blood cell count, unspecified (5) Immunosuppressed due to chemotherapy Status: Acute Assessment and plan: Patient just finished chemotherapy back in September Currently on Rituxan Infectious Disease HPI - Data of Consult Patient: new to practice Consult date: 01/03/18 Requesting Physician: Fred Lane Primary Care Provider: Cynthia Tirado CNP - Consult Narrative Reason for consult: groin abscess History of present illness: Ms. Desouza is a 67 year old female Patient is a 67-year-old woman with past medical history mentioned below presented to [facility] on 12/30/17 with pain and tenderness and swelling in the right groin area. We are consulted on 01/03/18 for antibiotics recommendations. This is a patient is 67 years old that has a past medical history mentioned below including lymphoma that was diagnosed in 2016 where she had the lymph node biopsy from the right groin. Patient was on chemotherapy through September of this year. Patient continues to be on Rituxan. Patient tells me that she started having pain fevers and chills and groin pain that started a day or 2 prior to admission. Patient presented to the ED for evaluation. On further questioning patient denies any hardware in her body. Denies any other complaints. She has been febrile with MAXIMUM TEMPERATURE of 103 Fahrenheit. Patient did not have any tachycardia. She has been hemodynamically stable. Patient's WBC today was 2.5. Patient had a CT abdomen and pelvis which revealed focal fluid collection in the proximal right thigh anteriorly likely abscess. Patient had an I&D on 12/31/2017 done at bedside and cultures were sent. Patient was started on vancomycin initially and 1 culture finalized she was switched to cefazolin and Flagyl. Cultures grew MSSA. Currently patient appears comfortable sitting in bed. Wound is packed but there is no erythema it looks like it has fully healed and she feels great. Her fever had subsided. CC: Fred Lane Past Med Surg Social Fam HX - Past Medical History Medical history: arthritis Additional medical history: soft tissue mass Psychiatric history: no psych history - Past Surgical History Surgical History: cancer surgery (right groin LN removal), hysterectomy (partial ), orthopedic, other (right knee meniscus repair; left thumb; ganglion cyst removal left foot; benign tumor of left foot removed) Additional surgical history: knee scope-right, Left wrist surgery - Social History Smoking Status: Never smoker Smokeless Tobacco Status: No Alcohol use: none Drug use: none - Family History Brother Living Status: Hx Family Cardiac Disorders: Yes (CHF) Hx Family Cancer: Yes (Pancreatic, Lung and Liver cancer) Hx Family Endocrine Disorder: Yes (DM) Father Living Status: Hx Family Cancer: Yes (Prostate cancer) Mother Living Status: Age at : 90 Hx Family Cardiac Disorders: Yes (CAD) Hx Family Endocrine Disorder: Yes (DM) Sister Hx Family Endocrine Disorder: Yes (DM) Infectious Disease-CN:Meds L. Acidophilus/Pectin, Atkinson [Acidophilus Probiotic Capsule] 1 cap PO DAILY 12/13 [History] Multivitamin [One Daily Multivitamin] 1 tab PO DAILY 12/30/17 [History] Sulfamethoxazole/Trimeth DS [Bactrim Ds] 1 tab PO BID 12/30/17 [History] Adhesive Tape [Paper Tape] 1 each TP AD #2 tape 12/31/17 [Rx] Polyhexam Biguan/Gauze Bandage [Curity Amd 4"X4" Non-Woven] 1 each TP AD #120 sponge 12/31/17 [Rx] Sodium Chloride [Mesalt] 1 each TP AD #10 bandage 12/31/17 [Rx] Swab [Cotton Swabs] 1 each MC AD #30 swab 12/31/17 [Rx] 3 Allergy/AdvReac Type Severity Reaction Status Date / Time hydrocodone [From Vicodin] AdvReac See Verified 12/30/17 15:27 Comments Review of systems: 10 point review of systems done, negative other for what mentioned in history of present illness. Exam - Constitutional Vitals: Temp Pulse Resp BP Pulse Ox 97.6 F 57 14 107/62 97 01/03/18 10:27 01/03/18 10:27 01/03/18 10:27 01/03/18 10:27 01/03/18 10:27 General appearance: no acute distress, no febrile - Eye Eye exam: Present: EOMI, PERRL Additional comments: No conjunctival hemorrhage - Respiratory Respiratory exam: Present: CTAB. Absent: wheezes - Cardiovascular Cardiovascular exam: Present: RRR, +S2 - GI/Abdominal GI/Abdominal exam: Present: normal bowel sounds, soft. Absent: tenderness - Extremities Exam Additional comments: Right groin with a small incision about 2 cm in length that is packed. There is no drainage no foul smell and no surrounding erythema. Patient tells me she feels much better. - Skin Additional comments: No endocarditis stigmata. Infectious Disease CN: Results - Labs CBC & Chem 7: 01/02/18 03:52 01/02/18 03:52 Cultures: Cultures 12/31/17 15:30 Anaerobic Culture - Preliminary Groin At this time, no anaerobic growth is present. The culture will be finalized after 5 days of incubation. 12/31/17 15:30 Wound Culture - Final Groin Staphylococcus aureus 12/31/17 15:30 Gram Stain - Final Groin 12/30/17 21:30 Blood Culture - Preliminary Peripheral Venipuncture Culture is incubating and being continuously monitored for growth. Final report to follow. 12/30/17 21:30 Blood Culture - Preliminary Peripheral Venipuncture Culture is incubating and being continuously monitored for growth. Final report to follow. Serology: Serology 01/02/18 Range/Units 21:00 Stl C. diff Tox B Gene Negative (Negative) Consult Discharge Plan - Plan Additional Instructions: Wound care- cleanse the right groin with soap and water and the shower daily and pat dry, pack with Mesalt ribbon, cover with dry dressing and taped to secure daily Referrals: Cynthia Tirado, PIPE CLEANING MACHINE OPERATOR [Primary Care Provider] - Kriss Knight, INSTITUTIONAL COMMODITY ANALYST [INSTITUTIONAL COMMODITY ANALYST] - (call Kriss Knight's office to schedule an appointment 1 to 2 weeks from today 01/01/2018. ) Anais Quintana, PIPE CLEANING MACHINE OPERATOR [Advanced Practice Nurse] - 01/07/18 9:45 am (procedure follow-up) Prescriptions: Adhesive Tape [Paper Tape] 1 each TP AD #2 tape Polyhexam Biguan/Gauze Bandage [Curity Amd 4"X4" Non-Woven] 1 each TP AD #120 sponge Sodium Chloride [Mesalt] 1 each TP AD #10 bandage Swab [Cotton Swabs] 1 each MC AD #30 swab
--- NOTE | 2018-01-03 14:01 | Discharge Summary ---
- NOTES TO OUTPATIENT PROVIDER Notes to Outpatient Provider: Recommend routine hospital follow-up Orders not resulted at time of discharge: Pending orders 12/30/17 21:30 Culture,Blood [BC] Stat Culture,Blood,Additional [BC] Stat 12/31/17 15:30 Culture,Anaerobic [RM] Stat Date of Encounter: 01/03/18 Time of Encounter: 13:56 - Discharge Diagnosis (1) Abscess of groin, right Priority: Primary Status: Acute Assessment and Plan: s/p lymph node excision 03/2017. Had fluid collection development with fine needle aspiration at [facility] 10/2017. No infection per patient. Now with recurrent fluid collection with surrounding cellulitis. ADB/pelvus CT showed focal fluid collection in the proximal right thigh anteriorly, likely abscess. S/p I&D 2017 per Ortho. Cultures with staph aureus. Blood cx's with no growth at time of discharge. She was initially treated with IV vancomycin and Zosyn which was de-escalated to Ancef and Flagyl. Evaluated by infectious disease who recommended Keflex 500 mg 3 times a day to be treated through 01/10/18. Has [facility] for daily wound care. Follow-up with General Surgery in 1-2 weeks (2) Loose stools Priority: Primary Status: Acute Assessment and Plan: Likely related to ATB, c. diff negative (3) Lymphoma Priority: Primary Status: Acute Assessment and Plan: per hx. Follows with Dr. Vazquez at [facility]. Currently on monthly treatment. 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 Says she had uneventful night. Thinks cellulitis to right groin is significantly improved. Plan to discharge home today with daily home health care dressing changes) - Time Spent with Patient Total time spent providing and/or coordinating discharge services: - Discharge Medications Prescriptions: OxyCODONE Immed Rel [Roxicodone 5 MG] 5 mg PO Q6HR PRN 5 Days #20 tablet PRN Reason: Pain Adhesive Tape [Paper Tape] 1 each TP AD #2 tape Cephalexin [Keflex] 500 mg PO TID #24 capsule Polyhexam Biguan/Gauze Bandage [Curity Amd 4"X4" Non-Woven] 1 each TP AD #120 sponge Sodium Chloride [Mesalt] 1 each TP AD #10 bandage Swab [Cotton Swabs] 1 each MC AD #30 swab Home Medications: L. Acidophilus/Pectin, [place] [Acidophilus Probiotic Capsule] 1 cap PO DAILY 12/13 [History] Multivitamin [One Daily Multivitamin] 1 tab PO DAILY 12/30/17 [History] Adhesive Tape [Paper Tape] 1 each TP AD #2 tape 12/31/17 [Rx] Polyhexam Biguan/Gauze Bandage [Curity Amd 4"X4" Non-Woven] 1 each TP AD #120 sponge 12/31/17 [Rx] Sodium Chloride [Mesalt] 1 each TP AD #10 bandage 12/31/17 [Rx] Swab [Cotton Swabs] 1 each AD #30 swab 12/31/17 [Rx] Cephalexin [Keflex] 500 mg PO TID #24 capsule 01/03/18 [Rx] OxyCODONE Immed Rel [Roxicodone 5 MG] 5 mg PO Q6HR PRN 5 Days #20 tablet [Rx] Allergies/Adverse Reactions: 3 Allergy/AdvReac Type Severity Reaction Status Date / Time hydrocodone [From Vicodin] AdvReac See Verified 12/30/17 15:27 Comments Date of admission: 12/30/17 19:56 Primary care physician: Cynthia Tirado CNP Consults: 12/31/17 15:57 Consult to Link Trainer Operator [CONS] Routine Reason for SW Consult: Will need home health at discharge for wound care/ packing 01/02/18 15:27 Consult to Infectious Diseases [CONS] Routine Consulting Provider: Infectious Disease [facility] Reason for Consult: Right groin abscess, recently completed chemotherapy. ATB recommendation and duration of treatment recommendation Call Completed: Yes Discharging clinician: My Andersen Anticipated date of discharge: 01/03/18 - Constitutional Vitals: Temp Pulse Resp BP Pulse Ox 97.6 F 57 14 107/62 97 01/03/18 10:27 01/03/18 10:27 01/03/18 10:27 01/03/18 10:27 01/03/18 10:27 General appearance: Present: A&O X 3, no acute distress, answers questions appropriately - Head Head exam: Present: atraumatic, normocephalic - Eye Eye exam: Present: PERRL, conjuntiva pink, sclera anicteric Pupils: Present: PERRL - Neck Neck exam general surgery: Present: supple, trachea midline. Absent: lymphadenopathy - Respiratory Respiratory exam: Present: CTAB. Absent: accessory muscle use, rales, rhonchi, wheezes - Cardiovascular Cardiovascular exam: Present: RRR, +S1, +S2. Absent: diastolic murmur, gallop, rubs, systolic murmur - GI/Abdominal GI/Abdominal exam: Present: normal bowel sounds, soft, no peritoneal signs. Absent: distended, tenderness - Extremities Exam Extremities exam: Present: warm, radial pulses palpable and symmetrical. Absent : calf tenderness, cyanotic, pedal edema - Neurological Exam Neurological exam: Present: CN II-XII intact, oriented X3, no focal deficits. Absent: pronater drift, facial droop, speech deficit - Skin Skin exam: Present: dry, intact (Right groin abscess/cellulitis with resolving and improving erythema. S/p I&D incision with moderate amt purulent drainage ) - Patient Status Disposition: Home Health Service Condition: Good Functional capacity at discharge: independent ambulation Overall status at discharge: patient is progressing back to baseline - Discharge Instructions Instructions: Cephalexin (By mouth), Abscess (GEN), Cellulitis (DC) Follow Up With: Cynthia Tirado CNP [Primary Care Provider] - Kriss Knight CRNA [CRT] - (call Kriss Knight's office to schedule an appointment 1 to 2 weeks from today 01/01/2018. ) Anais Quintana CNP [Advanced Practice Nurse] - 01/07/18 9:45 am (procedure follow-up) Additional Instructions: Wound care- cleanse the right groin with soap and water and the shower daily and pat dry, pack with Mesalt ribbon, cover with dry dressing and taped to secure daily - Diet and Activity Activity: increase activity as tolerated Diet: advance to your usual diet
--- NOTE | 2018-01-03 14:18 | Physician Discharge Referral ---
Home Health/Hosp Referral Info Transfer to: Home Health Attending Provider: My Hill CNP Provider in Charge Post Discharge: PCP - Diagnosis (1) Abscess of groin, right Status: Acute (2) Loose stools Status: Acute (3) Lymphoma Status: Acute - Respiratory Orders None Smoking Cessation: Smoking cessation has been advised. For more information, call the [place] Tobacco Quit Line at 5-472-RSSY-NOW. - Diet/Nutrition Diet/Nutrition Orders: Regular - Activity Activity Orders: Up ad yazmin, Ambulate - Services Needed Following services are medically necessary services: Nursing Other Treatments: Wound care- cleanse the right groin with soap and water and the shower daily and pat dry, pack with Mesalt ribbon, cover with dry dressing and taped to secure daily - Transfer Medications Prescriptions: OxyCODONE Immed Rel [Roxicodone 5 MG] 5 mg PO Q6HR PRN 5 Days #20 tablet PRN Reason: Pain Adhesive Tape [Paper Tape] 1 each TP AD #2 tape Cephalexin [Keflex] 500 mg PO TID #24 capsule Polyhexam Biguan/Gauze Bandage [Curity Amd 4"X4" Non-Woven] 1 each TP AD #120 sponge Sodium Chloride [Mesalt] 1 each TP AD #10 bandage Swab [Cotton Swabs] 1 each AD #30 swab Home Medications: L. Acidophilus/Pectin, [place] [Acidophilus Probiotic Capsule] 1 cap PO DAILY 12/13 [History] Multivitamin [One Daily Multivitamin] 1 tab PO DAILY 12/30/17 [History] Adhesive Tape [Paper Tape] 1 each TP AD #2 tape 12/31/17 [Rx] Polyhexam Biguan/Gauze Bandage [Curity Amd 4"X4" Non-Woven] 1 each TP AD #120 sponge 12/31/17 [Rx] Sodium Chloride [Mesalt] 1 each TP AD #10 bandage 12/31/17 [Rx] Swab [Cotton Swabs] 1 each AD #30 swab 12/31/17 [Rx] Cephalexin [Keflex] 500 mg PO TID #24 capsule 01/03/18 [Rx] OxyCODONE Immed Rel [Roxicodone 5 MG] 5 mg PO Q6HR PRN 5 Days #20 tablet [Rx] Allergies/Adverse Reactions: 3 Allergy/AdvReac Type Severity Reaction Status Date / Time hydrocodone [From Vicodin] AdvReac See Verified 12/30/17 15:27 Comments Certification: Further, I certify that my clinical findings support that this patient is homebound (i.e. absences from home require considerable and taxing effort and are for medical reasons or mormon services or infrequently or short duration when for other reasons) because: Homebound Reason: Post-surgery restriction and or conditions limit ability to leave home Attestation: My signature below is to certify that this patient is under my care and that I, or nurse practitioner, or a physician's communications assistant working with me, has a face-to -face encounter with this patient.
== END 2018-01-03 15:25 | disposition home health service (06) | DRG 580 ==
LOC: 3ANU 12:43 → EMEROO 12:43 → SUATTDRO 16:29 → 3ANU 18:00
PROVIDERS: ADMIT Hospitalist; ATTEND Internal Medicine